=== PATIENT | male | born 1985 | race African-American/Black ===

== ENCOUNTER 2017-02-16 09:12 | Emergency (ER) | payer BC ==
[~2017-02-16] VITALS: Ht 185.4 cm; Wt 137.0 kg
[~2017-02-16 09:12] MED LIST: ASA81BEC PO; BACTRIM DS TAB1 EACH; CARDIZEM; CARDIZEM CD180 MG PO; CENTRUM SILVER1 EAC2 PO; FISH OIL 500 M1 EACH PO; FISHOIL PO; IBUPROFEN 600600 M1 PO; MOBIC15 MG; MOTION RELIEF25 MG PO; NORCO 5-325 TA1 EACH PO; PHENERGAN 25 MG25 M1 PO; PROTONIX40 MG PO; PROVENTIL HFA6.7 G1 INH; SUPPLEMENTS; VALIUM5 MG PO; [UNRECOGNIZED DRUG - OTHER]
[2017-02-16 09:13] VITALS: BP 164/104
[2017-02-16] MEDS ORDERED: NORFLEX100 MG PO (09:40)
[2017-02-16] MEDS ORDERED: PREDNISONE 10 M10 MG PO (09:40)
== END 2017-02-16 10:02 | disposition still patient (30) ==
LOC: ER 09:12
DX: S39.012A Strain of muscle, fascia and tendon of lower back, initial encounter (principal); S33.6XXA Sprain of sacroiliac joint, initial encounter; J45.909 Unspecified asthma, uncomplicated; I48.91 Unspecified atrial fibrillation; F17.210 Nicotine dependence, cigarettes, uncomplicated; F10.99 Alcohol use, unspecified with unspecified alcohol-induced disorder; Z88.0 Allergy status to penicillin; Z88.5 Allergy status to narcotic agent; X58.XXXA Exposure to other specified factors, initial encounter; Y93.89 Activity, other specified; Y92.89 Other specified places as the place of occurrence of the external cause; Y99.0 Civilian activity done for income or pay

== ENCOUNTER 2018-06-20 12:58 | Emergency (ER) | payer OTHER ==
[~2018-06-20] VITALS: Ht 185.4 cm; Wt 145.2 kg
[~2018-06-20 12:58] MED LIST changes: +CLARITIN-D 121 EAC1 PO; +NORFLEX100 MG PO; +PREDNISONE 10 M10 MG PO; +PREDNISONE 20 M20 MG PO; +TESSALON PERLE100 MG PO; +VENTOLIN HFA 1818 GM INH
[2018-06-20] MEDS ORDERED: VITAMIN B-12500 MCG PO (14:21)
[2018-06-20] MEDS ORDERED: VITAMIN D3400 UNIT PO (14:22)
[2018-06-20 14:34] LABS: ABSOLUTE NEUTROPHILS 5.7 thou/uL (1.4-8.2); BASOPHILS 0.6 % (0.0-2.0); EOSINOPHILS 0.3 % (0.0-3.0); HEMOGLOBIN 13.7 gm/dL (14.0-18.0); LYMPHOCYTES 28.6 % (24.0-44.0); MCHC 33.4 g/dL (28.0-37.0); MONOCYTES 5.8 % (1.0-8.0); PLATELET COUNT 225 thou/uL (150-400); POLYS 64.7 % (36.0-66.0); RBC 5.06 mil/uL (4.50-6.00); RDW 15.9 % (10.5-14.5); WBC 8.8 thou/uL (4.0-11.0)
[2018-06-20 14:43] LABS: CALCIUM 9.5 mg/dL (8.5-10.1); POTASSIUM 3.9 mmol/L (3.5-5.1)
[2018-06-20 14:49] LABS: ALBUMIN 3.4 g/dL (3.4-5.0); TOTAL BILIRUBIN 0.8 mg/dL (<0.1-1.0); TOTAL PROTEIN 8.2 g/dL (6.4-8.2)
[2018-06-20 14:53] LABS: PROTIME 10.1 Seconds (9.3-11.4)
[2018-06-20 15:47] LABS: URINE BILIRUBIN NEGATIVE (Negative); URINE BLOOD NEGATIVE (Negative); URINE CLARITY CLEAR; URINE COLOR YELLOW; URINE GLUCOSE-RANDOM* NEGATIVE (Negative); URINE KETONES NEGATIVE (Negative); URINE LEUKOCYTES NEGATIVE (Negative); URINE NITRITE NEGATIVE (Negative); URINE PROTEIN (DIPSTICK) 1+ (Negative); URINE SPECIFIC GRAVITY >= 1.030 (1.005-1.035); URINE UROBILINOGEN 0.2 E.U./dl (0.2-1.0)
[2018-06-20 16:06] LABS: BACTERIA 1-9 Few /HPF (None Seen); CASTS None Seen /LPF (None Seen); CRYSTALS None Seen /LPF (None Seen); MUCUS >6 Heavy strn/LPF (None Seen); SQUAMOUS None Seen /LPF (0-3); URINE RBC None Seen /HPF (0-2); URINE WBC 0-5 Rare /HPF (0-5)
[2018-06-20] MEDS ORDERED: TORADOL 10 MG T10 MG PO (16:57)
[2018-06-20] MEDS ORDERED: NORCO 5-325 TA1 EACH PO (16:57)
[2018-06-20 17:13] VITALS: BP 153/83
== END 2018-06-20 17:14 | disposition home or self-care (01) ==
LOC: ER 12:58
PROVIDERS: Emergency Medicine
DX: M25.571 Pain in right ankle and joints of right foot (principal); M25.572 Pain in left ankle and joints of left foot; M79.604 Pain in right leg; M79.605 Pain in left leg; M25.511 Pain in right shoulder; M54.5 Low back pain; F17.210 Nicotine dependence, cigarettes, uncomplicated; Z88.0 Allergy status to penicillin; Z88.5 Allergy status to narcotic agent; I48.91 Unspecified atrial fibrillation; J45.909 Unspecified asthma, uncomplicated; W11.XXXA Fall on and from ladder, initial encounter; Y92.89 Other specified places as the place of occurrence of the external cause; Y93.89 Activity, other specified; Y99.8 Other external cause status

== ENCOUNTER 2018-06-21 18:11 | Emergency (ER) | payer OTHER ==
[~2018-06-21] VITALS: Ht 188 cm; Wt 145.2 kg
[~2018-06-21 18:11] MED LIST changes: +TORADOL 10 MG T10 MG PO; +VITAMIN B-12500 MCG PO; +VITAMIN D3400 UNIT PO
[2018-06-21 19:12] VITALS: BP 148/91
== END 2018-06-21 19:19 | disposition home or self-care (01) ==
LOC: ER 18:11
DX: S80.12XA Contusion of left lower leg, initial encounter (principal); S80.11XA Contusion of right lower leg, initial encounter; F17.210 Nicotine dependence, cigarettes, uncomplicated; I48.91 Unspecified atrial fibrillation; J45.909 Unspecified asthma, uncomplicated; Z88.5 Allergy status to narcotic agent; Z88.0 Allergy status to penicillin; W11.XXXA Fall on and from ladder, initial encounter; Y92.89 Other specified places as the place of occurrence of the external cause; Y93.89 Activity, other specified; Y99.8 Other external cause status

== ENCOUNTER 2019-11-12 14:39 | Emergency (ER) | payer BC ==
[~2019-11-12] VITALS: Ht 185.4 cm; Wt 145.2 kg
[2019-11-12] MEDS ORDERED: VENTOLIN HFA 1818 GM INH (15:17)
[2019-11-12] MEDS ORDERED: PREDNISONE 20 M20 MG PO (15:17)
[2019-11-12] MEDS ORDERED: PROMETH-CODEIN 65 ML PO (15:17)
[2019-11-12 15:27] VITALS: BP 161/65
== END 2019-11-12 15:29 | disposition home or self-care (01) ==
LOC: ER 14:39
DX: J45.901 Unspecified asthma with (acute) exacerbation (principal); I48.91 Unspecified atrial fibrillation; F17.210 Nicotine dependence, cigarettes, uncomplicated; Z79.899 Other long term (current) drug therapy